=== PATIENT | male | born 2000 | race Caucasian/White ===

== ENCOUNTER 2023-04-24 15:37 | Emergency (ER) | payer SELFPAY ==
[2023-04-24 15:55] VITALS: BP 142/84; PULSE 86; RESP 14; TEMP 36.6; O2SAT 95; BMI 43.4
[2023-04-24 16:38] LABS: Add Urine Culture? Yes; Add Urine Microscopic? YES; Bacteria Urine TRACE /hpf; Bilirubin Urine Neg (Negative); Blood Urine 2+ (Negative); Glucose Urine UA Norm (Normal); Ketones Urine Negative (Negative); Leukocyte Esterase Urine Negative (Negative); Mucus Urine 1+ /hpf; Nitrate Urine Negative (Negative); Protein Urine Neg (Negative); RBC Urine >100 /hpf (0-2); Specific Gravity, Urine 1.025 (1.005-1.030); Squamous Epithelial Cell Urine 0-4 /hpf (0-5); Urine Appearance SL Hazy (CLEAR); Urine Color Yellow (Yellow); Urobilinogen Urine Norm (Negative); WBC Urine 0-4 /hpf (0-5); pH Urine 6.5 (5-7)
--- NOTE | 2023-04-24 17:24 | ED_ITS ---
HPI - Male Genitourinary General: Chief complaint: Urogenital-Male Stated complaint: blood in urine Time Seen by Provider: 04/24/23 16:30 Source: patient Mode of arrival: ambulatory Limitations: no limitations History of Present Illness: Patient is a 22-year-old male who presents to ED today with a complaint of intermittent hematuria beginning yesterday. He states he will have episodes of bright red blood sometimes with clots other times his urine seems to be clear. No trouble going/dribbling/retention. He has not had any recent injury or trauma to his abdomen or genitals. He has absolutely no pain or discomfort. No flank pain. He denies penile discharge. No new sexual partners. No insertive anal intercourse. He has never had any previous episodes of hematuria. No new medications/supplements. MD Complaint: other (hematuria) Onset (ago): day(s) Duration: intermittent Relieving factors: none Exacerbating factors: none Associated symptoms: Reports hematuria; Deny dysuria, nausea or vomiting Review of Systems Const: Denies: fever(s), chills, body aches, fatigue or malaise GI: Denies: abdominal pain, nausea, vomiting or change in bowel habits : Reports: hematuria; Denies: flank pain, difficulty urinating, dysuria, urinary frequency, urinary urgency, urinary hesitancy, urinary dribbling, difficulty starting urination, change in urine stream, genital pain, testicular pain or scrotal swelling Musc: Denies: back pain Physical Exam Const: COMMON NORMALS: no acute distress, patient oriented x3, no limitations, alert and well nourished GENERAL APPEARANCE: cooperative NUTRITIONAL APPEARANCE: obese morbidly obese ORIENTATION/CONSCIOUSNESS: Yes awake, Yes oriented to person, Yes oriented to place and Yes oriented to time GI: COMMON NORMALS: Normal to inspection, nondistended, normoactive bowel sounds present, Soft to palpation, non-tender and no masses PALPATION: Yes Soft to palpation : COMMON NORMALS: Yes no CVA tenderness BLADDER/KIDNEY EXAM: Yes no CVA tenderness Back/Pelvis: COMMON NORMALS: no CVA tenderness Neuro: COMMON NORMALS: patient oriented x3 SENSORIUM/ORIENTATION: Yes alert, Yes oriented to person, Yes oriented to place and Yes oriented to time Course Vital Signs: Vital signs: Vital Signs Temperature 97.9 F 04/24/23 15:55 Pulse Rate 86 04/24/23 15:55 Respiratory Rate 14 04/24/23 15:55 Blood Pressure 142/84 04/24/23 15:55 Pulse Oximetry 95 04/24/23 15:55 Oxygen Delivery Me thod Room Air 04/24/23 15:55 MDM - Male Medical Decision Making Patient is here with complaints of painless hematuria. He had urine performed prior to my initial examination showing greater than 100 RBCs. Negative for nitrates, leuks, bacteria. Recommended further evaluation with CT imaging however patient declines stating he needs to get home to attend to his animals. We will go ahead and obtain urine culture. We will place a referral for urology for further evaluation of hematuria. Strict return to ED precautions given. Lab Data Laboratory Results Urine Color Yellow (Yellow) 04/24/23 16:24 Urine Appearance Sl hazy (CLEAR) A 04/24/23 16:24 Urine pH 6.5 (5-7) 04/24/23 16:24 Ur Specific [place] 1.025 (1.005-1.030) 04/24/23 16:24 Urine Protein Neg (Negative) 04/24/23 16:24 Urine Glucose (UA) Norm (Normal) 04/24/23 16:24 Urine Ketones Negative (Negative) 04/24/23 16:24 Urine Blood 2+ (Negative) H 04/24/23 16:24 Urine Nitrate Negative (Negative) 04/24/23 16:24 Urine Bilirubin Neg (Negative) 04/24/23 16:24 Urine Urobilinogen Norm mg/dL (Negative) 04/24/23 16:24 Ur Leukocyte Esterase Negative (Negative) 04/24/23 16:24 Urine RBC >100 /hpf (0-2) H 04/24/23 16:24 Urine WBC 0-4 /hpf (0-5) H 04/24/23 16:24 Ur Squamous Epith Cells 0-4 /hpf (0-5) H 04/24/23 16:24 Amorphous Sediment Not Reportable 04/24/23 16:24 Urine Bacteria Trace /hpf (NONE) 04/24/23 16:24 Urine Mucus 1+ /hpf 04/24/23 16:24 Discharge Plan Discharge Patient Disposition: Home Clinical Impression: Gross hematuria Condition: Stable Prescriptions: No Action No Known Home Medications amoxicillin-pot clavulanate 875-125 mg tablet 1 tab PO BID Qty: 20 0RF Discharge Orders: Discharge ED (Routine); Ordered 04/24/23 Ordered By: Rosi Duarte Patient Instructions: Hematuria - Male Activity Restrictions/Additional Instructions: As we discussed you declined further evaluation for the blood in the urine stating you needed to get home and care for your animals. We will go ahead and culture your urine. I will place a referral with urology for further evaluation/treatment. Coding Level of Care Code ED [employer] for [facility]
--- NOTE | 2023-04-25 05:02 | DCPLANNER ---
Addendum entered by Martha Steven 05/01/23 12:10: compensation and benefits manager received the following message from urology regarding follow up appointment: Please send elsewhere due to Dr. Whitten's snf in 2 weeks. compensation and benefits manager called patient at phone number [phone] - unable to speak with patient, a voicemail was left for patient to return pillowcase cleaner phone call. Original Note: compensation and benefits manager had message to schedule a follow up appointment for patient with urology. compensation and benefits manager sent patients information to the front office staff at urology. Patients information will be printed and reviewed. Clinic will call patient with appointment information.
--- NOTE | 2023-05-03 16:40 | PC.SOCIAL ---
Addendum entered by Martha Steven 05/17/23 15:19: pmo manager called to confirm that [facility] received patients information, clinic had received it, will call patient with appointment information. Original Note: Urology Referral Faxed to [facility] at this time.
--- NOTE | 2023-05-13 15:01 | DCPLANNER ---
late entry - patient called due to no primary care physician - no answer at this time.
== END 2023-04-24 18:06 | disposition home or self-care (01) ==
PROVIDERS: Emergency Medicine; Emergency Provider Physician Assistant
DX: R31.0 Gross hematuria (principal)
CPT/HCPCS: 81001; 87086; 99283

== ENCOUNTER 2024-12-02 21:04 | Emergency (ER) | payer OTHER, SELFPAY ==
--- NOTE | 2024-12-02 21:06 | XRR_ITS ---
PROCEDURE INFORMATION: Exam: XR Chest Exam date and time: 12/02/2024 9:33 PM Age: 24 years old Clinical indication: Chest pressure; Patient HX: Lt chest pain that radiates to lt arm TECHNIQUE: Imaging protocol: Radiologic exam of the chest. Views: 1 view. COMPARISON: No relevant prior studies available. FINDINGS: Lungs: Unremarkable. No consolidation. Pleural spaces: Unremarkable. No pleural effusion. No pneumothorax. Heart/Mediastinum: Unremarkable. No cardiomegaly. Bones/joints: Unremarkable. XR/XR chest 1V portable [id number] IMPRESSION: No acute findings.
--- NOTE | 2024-12-02 21:06 | ECG_ITS ---
[facility]: 2024-12-02 Pat Name: Pedro Sy Department: Room: Gender: Male Tram Inspector: : 2000 Requested By: Rosi Duarte Order Number: [id number] Reading MD: Measurements Intervals [place] Rate: 78 P: 42 ME: 155 QRS: 1 QRSD: 109 T: 34 QT: 342 QTc: 390 Interpretive Statements SINUS RHYTHM No previous ECG available for comparison [email or web address]
[2024-12-02 21:12] VITALS: BP 132/85; PULSE 78; RESP 16; TEMP 36.4; O2SAT 98; BMI 44.0
[2024-12-02 22:20] VITALS: BP 132/85; PULSE 78; RESP 17; O2SAT 95
--- NOTE | 2024-12-02 22:47 | W.ED.CHESTPA ---
HPI - Chest Pain General: Chief Complaint: Chest Pain Stated Complaint: CP into L shoulder/arm Time Seen by Provider: 12/02/24 22:12 Source: patient Mode of arrival: ambulatory Limitations: no limitations History of Present Illness: Patient is a 24-year-old male who presents to ED today with a complaint of left-sided chest pain. Patient states he was at work earlier today when he developed a sharp pain to his left chest that then radiated over to the right side. He states it lasted for a few minutes before subsiding. 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 Pain since then has been worse with movement. He is not having any shortness of breath or difficulty breathing. No hemoptysis. He arrives to the emergency department in no acute distress with completely normal vital signs. He is currently rating his pain is minimal. MD complaint: chest pain Onset (ago): hour(s) Timing of current episode: other (improving) Prior episodes: No Pain location: left chest Pain radiation: other (right chest) Severity: mild Quality: sharp Relieving factors: nothing Exacerbating factors: movement Associated symptoms: Reports no associated symptoms; Deny dyspnea, fever(s), palpitations or syncope Treatment prior to arrival: none Risk Factors: Coronary artery disease risk factors: none Thoracic aortic dissection risk factors: none Related Data Home Medications Medication Instructions Recorded Confirmed No Known Home Medications 03/02/23 03/17/23 Previous Rx's Medication Instructions Recorded amoxicillin 875 mg-potassium 1 tab PO BID #20 tabs 03/02/23 clavulanate 125 mg tablet Allergies Allergy/AdvReac Type Severity Reaction Status Date / Time No Known Allergies Allergy Verified 12/02/24 21:19 Review of Systems Const: Denies: fever(s), chills, body aches, fatigue or malaise Card: Reports: chest pain; Denies: palpitations, irregular heart rhythm, edema, swelling of feet/ankles, lightheadedness, syncope, pre-syncope, dyspnea on exertion, orthopnea, leg pain with exertion or acrocyanosis Resp: Denies: dyspnea, productive cough, non-productive cough, wheezing, stridor, pain on inspiration, change in phlegm color, hemoptysis or chest congestion Musc: Denies: back pain Neuro: Denies: headache(s), numbness in extremities, weakness in extremities, sensory changes or dizziness Physical Exam Const: COMMON NORMALS: no acute distress, patient oriented x3, no limitations, alert and well nourished GENERAL APPEARANCE: cooperative NUTRITIONAL APPEARANCE: obese Neck/C-Spine: COMMON NORMALS: full ROM, no lymphadenopathy and no meningeal signs GENERAL: Yes normal visual inspection Chest: COMMONS NORMALS: normal inspection of the chest OTHER: TTP L anterior chest wall Resp: COMMON NORMALS: normal respiratory effort and clear to auscultation bilaterally AUSCULTATION: clear to auscultation bilaterally Cardio: COMMON NORMALS: regular rate and regular rhythm RATE: regular rate RHYTHM: regular rhythm GI: COMMON NORMALS: Normal to inspection, nondistended, normoactive bowel sounds present, Soft to palpation, non-tender, No hepatosplenomegaly present and no masses PALPATION: Yes Soft to palpation and Yes No hepatosplenomegaly present : COMMON NORMALS: Yes no CVA tenderness BLADDER/KIDNEY EXAM: Yes no CVA tenderness Back/Pelvis: COMMON NORMALS: no CVA tenderness Extremity: COMMON NORMALS: no clubbing, cyanosis or edema, no calf tenderness and no pedal edema GENERAL: Yes normal exam except as noted Neuro: COMMON NORMALS: patient oriented x3 SENSORIUM/ORIENTATION: Yes alert MENINGEAL SIGNS: Yes no meningeal signs Course Vital Signs: Vital signs: Vital Signs Temperature 97.6 F 12/02/24 21:12 Pulse Rate 78 12/02/24 22:20 Respiratory Rate 17 12/02/24 22:20 Blood Pressure 132/85 12/02/24 22:20 Pulse Oximetry 95 12/02/24 22:20 Oxygen Delivery Me thod Room Air 12/02/24 22:20 MDM - Chest Pain Medical Decision Making Patient clinically appears no acute distress. His vital signs are stable. He is currently rating his pain as minimal. Pain is easily reproducible with palpation of his left anterior chest wall. His CXR is unremarkable. EKG showing normal sinus rhythm with no ischemic changes. Patient will be allowed discharge. Return to ED precautions discussed. Medical Records I reviewed the patient's medical records. Lab Data Radiology Impressions Chest X-Ray 12/02/24 21:06 IMPRESSION: No acute findings. All radiology interpretation(s) finalized by discharge Discharge Plan Discharge Patient Disposition: Home Clinical Impression: Anterior chest wall pain Condition: Stable Prescriptions: No Action No Known Home Medications amoxicillin-pot clavulanate 875-125 mg tablet 1 tab PO BID Qty: 20 0RF Discharge Orders: Discharge ED (Routine); Ordered 12/02/24 Ordered By: Rosi Duarte Patient Instructions: Chest Pain - Chest Wall, Chest Wall Pain (ED) Activity Restrictions/Additional Instructions: As we discussed, you need to return to the emergency department for worsening chest pain, shortness of breath, difficulty breathing, lightheadedness/passing out episodes, generally feeling worse or unwell, or any other concerns you may have. Coding Level of Care Code ED [employer] for [facility]
[2024-12-02 23:16] VITALS: BP 140/75; PULSE 74; RESP 18; O2SAT 96
== END 2024-12-02 23:18 | disposition home or self-care (01) ==
PROVIDERS: Emergency Provider Physician Assistant
DX: R07.89 Other chest pain (principal)
CPT/HCPCS: 71045; 93005; 99284